=== PATIENT | female | born 1985 | race Caucasian/White ===

== ENCOUNTER 2024-08-21 06:21 | Day surgery (SDC) | payer OTHER ==
[2024-08-16 13:03] VITALS: BMI 32.6
[2024-08-21] MEDS ORDERED: BUPIVACAINE HCL/PF 2.5 MG/ML - 30 ML VIAL IJ ONE (07:29)
[2024-08-21] MEDS ORDERED: MIDAZOLAM HCL 2 MG/2 ML SINGLE DOSE VIAL ONE (07:44)
[2024-08-21] MEDS ORDERED: DEXAMETHASONE SOD PHOSPHATE 4 MG/1 ML VIAL ONE (07:44)
[2024-08-21] MEDS ORDERED: ONDANSETRON 4 MG/2 ML VIAL ONE (07:44)
[2024-08-21] MEDS ORDERED: PROPOFOL 40 ML ONE (07:44)
[2024-08-21] MEDS ORDERED: DEXAMETHASONE SOD PHOSPHATE 10 MG/1 ML VIAL ONE (07:58)
[2024-08-21] MEDS ORDERED: ROPIVACAINE HCL/PF 100 MG/20 ML VIAL ONE (07:59)
[2024-08-21] MEDS ORDERED: PROPOFOL 100 ML ONE (08:42)
[2024-08-21] MEDS ORDERED: HYDROmorphone HCL/PF 1 MG/ML VIAL ONE ×2 (08:53→09:35)
[2024-08-21] MEDS ORDERED: FENTANYL CITRATE/PF 50 MCG/ML VIAL ONE (11:18)
[2024-08-21] MEDS ORDERED: LACTATED RINGERS SOLUTION 1,000 ML IV SCH (11:30)
[2024-08-21 13:31] VITALS: RESP 16; TEMP 97.3
[2024-08-21 13:43] VITALS: BP 154/88; PULSE 118
== END 2024-08-21 13:20 | disposition home or self-care (01) ==
LOC: FASU 06:21
PROVIDERS: ATTEND Orthopaedic Surgery Sports Medicine
PROC: 0MSN4ZZ Reposition Right Knee Bursa and Ligament, Percutaneous Endoscopic Approach (ICD-10-PCS; principal; 2024-08-21 09:14)
DX: S83.511A Sprain of anterior cruciate ligament of right knee, initial encounter (principal); S83.281A Other tear of lateral meniscus, current injury, right knee, initial encounter; T84.84XA Pain due to internal orthopedic prosthetic devices, implants and grafts, initial encounter; M65.861 Other synovitis and tenosynovitis, right lower leg; X58.XXXA Exposure to other specified factors, initial encounter; Y79.8 Miscellaneous orthopedic devices associated with adverse incidents, not elsewhere classified; Y92.9 Unspecified place or not applicable; Y93.9 Activity, unspecified
CPT/HCPCS: 20680; 29880; 29888; C1776; 73560-TC-RT-FY; 81025; 88300-TC; 94760; C1713; J1100